=== PATIENT | female | born 1955 | race Caucasian/White ===

== ENCOUNTER 2019-11-02 04:41 | Emergency (ER) | payer OTHER ==
[~2019-11-02] VITALS: Ht 160 cm; Wt 81.0 kg
[2019-11-02] MEDS ORDERED: MAGNESIUM/ALUMINUM HYDROXIDE/SIMETHICONE 30ML UDC PO ONE (05:15)
[2019-11-02 05:37] LABS: BASOPHILS % 0.7 % (0.0-2.0); EOSINOPHILS % 3.5 % (0.0-5.0); HEMATOCRIT. 39.7 % (36.0-48.0); LYMPHOCYTES % 48.8 % (20.0-50.0); MEAN CORPUSCULAR HEMOGLOBIN 32.4 pg (28.0-32.0); MEAN CORPUSCULAR VOLUME 91.9 fL (81.0-99.0); MEAN PLATELET VOLUME 8.6 fl (7.4-10.4); PLATELET 274 x1000/uL (130-400); RED BLOOD CELL COUNT 4.32 mill/uL (4.2-5.4); RED CELL DISTRIBUTION WIDTH 12.7 % (11.6-14.6)
[2019-11-02 05:42] LABS: CHLORIDE 108 mEq/L (98-107)
[2019-11-02] MEDS ORDERED: FAMOTIDINE 20MG/2ML VIAL IV STA (06:47)
[2019-11-02] MEDS ORDERED: MAGNESIUM/ALUMINUM HYDROXIDE/SIMETHICONE 30ML UDC PO STA (06:47)
[2019-11-02] MEDS ORDERED: ONDANSETRON HCL 4MG/2ML INJ IV STA (06:47)
[2019-11-02] MEDS ORDERED: DICYCLOMINE 10 MG/5 ML ORAL SYR PO STA (06:47)
[2019-11-02] MEDS ORDERED: VISCOUS LIDOCAINE 2% 15 ML UDC PO STA (06:47)
[2019-11-02] MEDS ORDERED: SODIUM CHLORIDE 0.9% 1,000 ML IV ONE (06:47)
[2019-11-02 10:27] VITALS: BP 160/82
== END 2019-11-02 10:30 | disposition home or self-care (01) ==
LOC: ER 05:18
DX: K29.70 Gastritis, unspecified, without bleeding (principal); R03.0 Elevated blood-pressure reading, without diagnosis of hypertension
CPT/HCPCS: 36415; 71045; 80053; 83690; 83880; 84484; 85025; 93005; 96361; 96374; 96375; 99285; J2405; J3490; J7030

== ENCOUNTER 2020-09-01 14:00 | Emergency (ER) | payer OTHER ==
[~2020-09-01] VITALS: Ht 157.5 cm; Wt 82.0 kg
[2020-09-01] MEDS ORDERED: IBUPROFEN 400MG TABLET PO ONE (16:45)
[2020-09-01] MEDS ORDERED: P50 MT (17:06)
[2020-09-01] MEDS ORDERED: IBUP-2028 MT (17:06)
[2020-09-01] MEDS ORDERED: T3 PO (17:06)
[2020-09-01] MEDS ORDERED: ACYC200C MT (17:06)
[2020-09-01 17:07] VITALS: BP 177/105
== END 2020-09-01 18:48 | disposition home or self-care (01) ==
LOC: ER 14:00
DX: B02.9 Zoster without complications (principal); I10 Essential (primary) hypertension; Z86.39 Personal history of other endocrine, nutritional and metabolic disease
CPT/HCPCS: 93005; 99283